=== PATIENT | female | born 1960 | race Caucasian/White ===

== ENCOUNTER → 2018-03-27 | Outpatient (CLI) | payer OTHER | LOC: M WHC 14:38 | DX: Z12.31 Encounter for screening mammogram for malignant neoplasm of breast (principal) ==

== ENCOUNTER → 2018-03-27 | Outpatient (REF) | payer OTHER | LOC: M SFHCWAGY 15:17 | DX: Z12.4 Encounter for screening for malignant neoplasm of cervix (principal) ==

== ENCOUNTER → 2019-10-07 | Outpatient (CLI) | payer OTHER ==
--- NOTE | 2019-10-07 17:04 | REPMRS ---
Patient History The patient states she had a clinical breast exam in 09/2019. No known family history of cancer. No Hormone Replacement Therapy 3D TOMOSYNTHESIS WAS PERFORMED. The Adrienne Mccoy lifetime risk for breast cancer is 9.5%. Digital Woman Screen Mammo: October 07, 2019 - Exam #: [id number] Bilateral CC and MLO view(s) were taken. Technologist: Nova Hernandes, Technologist Prior study comparison: March 27, 2018, bilateral digital woman screen mammo performed at [facility]. May 31, 2016, digital woman screen mammo performed at [facility]. FINDINGS: There are scattered fibroglandular densities. There has been no change in the appearance of the mammogram from the prior studies. There is a mild amount of residual fibroglandular tissue which is fairly symmetric. There is no interval development of dominant mass, architectural distortion, or clustered microcalcification suggestive of malignancy. Assessment: BI-RADS/ACR category 1 mammogram. Negative Mammogram. Recommendation Routine screening mammogram in 1 year (for women over age 40). This mammogram was interpreted with the aid of an FDA-approved computer-aided dectection system. Electronically Signed By: Fran Zelaya MD 10/07/19 [id number]
== END ==
LOC: M WHC 15:08
PROVIDERS: ATTEND Nurse Practitioner Women's Health
DX: Z12.31 Encounter for screening mammogram for malignant neoplasm of breast (principal)

== ENCOUNTER → 2021-01-12 | Outpatient (REF) | payer OTHER ==
[2021-01-12 11:20] LABS: BASO # 0.1 10^3/uL (0.0-0.2); BASO % 0.7 % (0.0-1.0); EOS # 0.2 10^3/uL (0.0-0.5); EOS % 2.1 % (0.0-3.0); HEMATOCRIT 39.4 % (36.0-47.0); HEMOGLOBIN 12.6 g/dl (12.0-15.5); LYMPH # 1.6 10^3/uL (1.5-5.0); MEAN CORPUSCULAR HEMOGLOBIN 27.9 pg (27.0-33.0); MEAN CORPUSCULAR VOLUME 87.2 fl (80.0-96.0); MONO # 0.7 10^3/uL (0.0-0.8); MONO % 8.1 % (2.0-8.0); NEUTROPHILS # 6.2 10^3/uL (1.5-8.5); NEUTROPHILS % 70.5 % (36.0-66.0); PLATELET COUNT, AUTOMATED 279 10^3/uL (150-450); RED BLOOD COUNT 4.52 10^6/uL (4.00-5.40); WHITE BLOOD COUNT 8.7 10^3/uL (4.0-10.0)
[2021-01-12 11:52] LABS: ALT/SGPT 35 U/L (12-78); BILIRUBIN,TOTAL 0.4 MG/DL (0.2-1.0); BLOOD UREA NITROGEN 16 MG/DL (7-18); CALCIUM LEVEL 9.7 MG/DL (8.5-10.1); CARBON DIOXIDE LEVEL 25 MEQ/L (21-32); CHLORIDE LEVEL 108 MEQ/L (98-107); CHOLESTEROL LEVEL 194 MG/DL (<200); CREATININE FOR GFR 0.55 MG/DL (0.55-1.30); GLOMERULAR FILTRATION RATE > 60.0 (>51); GLUCOSE, FASTING 102 MG/DL (70-100); HDL CHOLESTEROL 52 MG/DL (>40); LDL CHOLESTEROL 115 MG/DL (<100); NON-HDL-C 142 MG/DL; SODIUM LEVEL 141 MEQ/L (136-145); TOTAL PROTEIN 7.4 GM/DL (6.4-8.2); TRIGLYCERIDES LEVEL 135 MG/DL (<150)
[2021-01-12 11:53] LABS: ALBUMIN 4.1 GM/DL (3.2-5.2); FREE T4 0.83 NG/DL (0.76-1.46)
[2021-01-12 12:16] LABS: HEMOGLOBIN A1c 5.9 %
== END ==
LOC: M SFHCCLAY 08:45
PROVIDERS: ATTEND Nurse Practitioner Family
DX: R73.09 Other abnormal glucose (principal); E66.01 Morbid (severe) obesity due to excess calories; Z68.41 Body mass index [BMI] 40.0-44.9, adult; R45.86 Emotional lability

== ENCOUNTER → 2021-08-10 | Outpatient (REF) | payer OTHER | LOC: M SFHCWAGY 17:28 | PROVIDERS: ATTEND Nurse Practitioner Women's Health | DX: Z12.4 Encounter for screening for malignant neoplasm of cervix (principal) ==

== ENCOUNTER → 2021-08-10 | Outpatient (CLI) | payer OTHER ==
--- NOTE | 2021-08-10 17:56 | REPMRS ---
Patient History The patient states she had a clinical breast exam in August 10, 2021. Patient is postmenopausal No known family history of cancer. No Hormone Replacement Therapy Tomosynthesis is performed. Volpara breast density is a. [facility] lifetime risk of breast cancer 9.0%. Covid vaccines 12/01/20 left arm. 12/28/20 left arm. 07/30/21 left arm. Patient states no breast complaints today. Patient has signed MRS History Sheet. Digital Woman Screen Mammo: August 10, 2021 - Exam #: [id number] Bilateral CC and MLO view(s) were taken. Technologist: RT Yazan Prior study comparison: October 07, 2019, bilateral digital woman screen mammo performed at [facility]. March 27, 2018, bilateral digital woman screen mammo performed at [facility]. FINDINGS: There are scattered fibroglandular densities. There has been no change in the appearance of the mammogram from the prior studies. There is a mild amount of residual fibroglandular tissue which is fairly symmetric. There is no interval development of dominant mass, architectural distortion, or clustered microcalcification suggestive of malignancy. Assessment: BI-RADS/ACR category 1 mammogram. Negative Mammogram. Recommendation Routine screening mammogram in 1 year (for women over age 40). This mammogram was interpreted with the aid of an FDA-approved computer-aided dectection system. Electronically Signed By: Fran Zelaya MD 08/10/21 1935
== END ==
LOC: M WHC 15:08
PROVIDERS: ATTEND Nurse Practitioner Women's Health
DX: Z12.31 Encounter for screening mammogram for malignant neoplasm of breast (principal)

== ENCOUNTER → 2022-10-25 | Outpatient (REF) | payer OTHER | LOC: M SFHCCLAY 14:44 | PROVIDERS: ATTEND Family Medicine | DX: H10.31 Unspecified acute conjunctivitis, right eye (principal) ==

== ENCOUNTER 2024-01-05 12:52 | Emergency (ER) | payer OTHER ==
[~2024-01-05] VITALS: Ht 162.6 cm; Wt 110.5 kg
[2024-01-05 13:17] VITALS: BP 151/64; O2SAT 100
[2024-01-05] MEDS: ACETAMINOPHEN 500 MG TAB PO ONE (13:26)
[2024-01-05] MEDS: KETOROLAC 30 MG/ML 1ML VIAL IM ONE (13:33)
[2024-01-05] MEDS: KETOROLAC 30 MG/ML 1ML VIAL IV ONE (14:47)
[2024-01-05] MEDS ORDERED: MELO7.5T35 PO (15:31)
== END 2024-01-05 15:09 | disposition home or self-care (01) ==
LOC: M ED 12:52
DX: S80.01XA Contusion of right knee, initial encounter (principal); W19.XXXA Unspecified fall, initial encounter; Y92.481 Parking lot as the place of occurrence of the external cause; Y93.9 Activity, unspecified; Y99.9 Unspecified external cause status; F41.9 Anxiety disorder, unspecified
CPT/HCPCS: 73030; 73564; 96372; 96374; 99284; J1885

== ENCOUNTER 2024-10-06 06:15 | Day surgery (SDC) | payer OTHER ==
[~2024-10-06] VITALS: Ht 162.6 cm; Wt 111.9 kg
[~2024-10-06 06:15] MED LIST: D 1010004 PO; LEXA1TAB2 PO; MELO7.5T35 PO; MULTCHW14 PO
[2024-10-06] MEDS ORDERED: MIDAZOLAM INJ 2MG/2ML VIAL As Ordered ONE (07:14)
[2024-10-06] MEDS ORDERED: propofoL 200 MG/20 ML VIAL As Ordered ONE (07:14)
[2024-10-06] MEDS ORDERED: fentaNYL 100 MCG/2 ML INJECTION As Ordered ONE (07:14)
[2024-10-06] MEDS ORDERED: LIDOCAINE 2% 100MG/5ML SDV (FOR ANES.) As Ordered ONE (07:14)
[2024-10-06] MEDS: NS (Normal Saline) 0.9% 1,000 ML IV SCH (07:16)
[2024-10-06] MEDS ORDERED: KETOROLAC 60MG 2ML VIAL As Ordered ONE (07:18)
[2024-10-06] MEDS: ceFAZolin SOD 2 GM in IV 1 EA IV ONE (07:30)
[2024-10-06] MEDS: BUPivacaine LIPOSOME/PF 266MG 20ML VIAL (13.3MG/ML)(EXPAREL) As Ordered ONE (08:09)
[2024-10-06 08:22] VITALS: BP 132/69
[2024-10-06 08:59] VITALS: TEMP 98.6; O2SAT 95
== END 2024-10-06 09:01 | disposition home or self-care (01) ==
LOC: M SDC 06:15
PROVIDERS: ATTEND Surgery
DX: D17.22 Benign lipomatous neoplasm of skin and subcutaneous tissue of left arm (principal); Z68.41 Body mass index [BMI] 40.0-44.9, adult; Z79.899 Other long term (current) drug therapy
CPT/HCPCS: 11403; 88304; 93005; J0665; J0666; J0690; J1885; J2250; J3010

== ENCOUNTER → 2025-07-05 | Outpatient (REF) | payer OTHER | LOC: M SFHCCLAY 07:31 | PROVIDERS: ATTEND Nurse Practitioner Family | DX: Z00.00 Encounter for general adult medical examination without abnormal findings (principal); R73.03 Prediabetes; R45.86 Emotional lability; Z68.41 Body mass index [BMI] 40.0-44.9, adult; E66.01 Morbid (severe) obesity due to excess calories ==

== ENCOUNTER → 2025-07-09 | Outpatient (REF) | payer OTHER ==
[2025-07-09 13:41] LABS: BASO # 0.1 10^3/uL (0.0-0.2); BASO % 1.1 % (0.0-1.0); EOS # 0.2 10^3/uL (0.0-0.5); EOS % 2.5 % (0.0-3.0); LYMPH # 2.0 10^3/uL (1.5-5.0); LYMPH % 28.0 % (24.0-44.0); MONO # 0.6 10^3/uL (0.0-0.8); MONO % 8.1 % (2.0-8.0); NEUTROPHILS # 4.3 10^3/uL (1.5-8.5); NEUTROPHILS % 59.7 % (36.0-66.0); PLATELET COUNT, AUTOMATED 281 10^3/uL (150-450)
[2025-07-09 13:47] LABS: ALT/SGPT 36 U/L (7.0-40); AST/SGOT 22 U/L (<34); CALCIUM LEVEL 8.7 MG/DL (8.3-10.6); CARBON DIOXIDE LEVEL 29 MMOL/L (20-31); CHLORIDE LEVEL 102 MMOL/L (98-107); CHOLESTEROL LEVEL 180 MG/DL (<200); CHOLESTEROL RISK RATIO 3.94 (<5); CREATININE FOR GFR 0.66 MG/DL (0.55-1.30); GLOMERULAR FILTRATION RATE > 90.0 (>45); LDL CHOLESTEROL 104.8 MG/DL (<100); NON-HDL-C 134.4 MG/DL; POTASSIUM SERUM 4.3 MMOL/L (3.5-5.1); SODIUM LEVEL 139 MMOL/L (136-145); TRIGLYCERIDES LEVEL 148 MG/DL (<150)
[2025-07-09 13:49] LABS: FREE T4 0.97 NG/DL (0.89-1.76)
[2025-07-09 13:50] LABS: ESTIMATED AVERAGE GLUCOSE 126.0 MG/DL (60-110)
== END ==
LOC: M SFHCCLAY 12:29
PROVIDERS: ATTEND Nurse Practitioner Family
DX: R73.03 Prediabetes (principal); E66.01 Morbid (severe) obesity due to excess calories; Z68.41 Body mass index [BMI] 40.0-44.9, adult; R45.86 Emotional lability